=== PATIENT | male | born 1960 | race Two or more races ===

== ENCOUNTER 2017-08-11 16:40 | Emergency (ER) | payer MEDICAID ==
[~2017-08-11] VITALS: Ht 157.5 cm; Wt 90.5 kg
[2017-08-11 16:43] VITALS: BP 177/91
[2017-08-11] MEDS ORDERED: PRAV40TA2 PO (18:27)
[2017-08-11] MEDS ORDERED: GABA-827 PO (18:27)
[2017-08-11] MEDS ORDERED: ALOG25TA PO (18:27)
[2017-08-11] MEDS ORDERED: OMEP-110 PO (18:27)
[2017-08-11] MEDS ORDERED: LOSA25TA5 PO (18:27)
[2017-08-11] MEDS ORDERED: KETOROLAC 30 MG/1 ML ONE (18:59)
[2017-08-11] MEDS ORDERED: HYDROcodone/APAP 5/325 TABLET ONE (18:59)
[2017-08-11] MEDS ORDERED: HYDROcodone/APAP 5/325 TABLET PO ONE (19:00)
[2017-08-11] MEDS ORDERED: KETOROLAC 30 MG/1 ML IM ONE (19:00)
== END 2017-08-11 19:17 | disposition home or self-care (01) ==
LOC: ED 18:07
DX: M54.41 Lumbago with sciatica, right side (principal); M25.551 Pain in right hip; M79.651 Pain in right thigh; I10 Essential (primary) hypertension
CPT/HCPCS: 73502; 82962; 96372; 99284; J1885; J7512

== ENCOUNTER 2019-11-25 11:28 | Emergency (ER) | payer MEDICAID, OTHER ==
[~2019-11-25] VITALS: Ht 157.5 cm; Wt 96.8 kg
[~2019-11-25 11:28] MED LIST: ALOG25TA PO; GABA-827 PO; LOSA25TA25 PO; OMEP-110 PO; PRAV40TA2 PO
--- NOTE | 2019-11-25 12:00 | NUR ---
PT C/O NASAL CONGESTION X5 MONTHS. PT HAS SEEN DRS IN [place] AND IN [place] FOR THIS PROBLEM. HAS TAKEN ABX IN [place] WITH NO RELIEF. PT STATES IT HAS BEEN GETTING WORSE AND IS HAVING PROBLELMS SLEEPING. CONNECTED TO MONITORING. SPOUSE AT BEDSIDE. CALL LIGHT IN REACH. MD AT BEDSIDE FOR ASSESSMENT. AWAITING ORDERS AT THIS TIME.
--- NOTE | 2019-11-25 12:36 | NUR ---
PT RESTING COMFORTABLY ON GURNEY. NADN. LABS DRAWN. XRAY DONE.
[2019-11-25 12:39] LABS: BASOPHILS # (AUTO) 0.06 x10^3/uL (0-0.1); BASOPHILS % (AUTO) 1 % (0-1); EOSINOPHILS # (AUTO) 0.49 x10^3/uL (0-0.4); EOSINOPHILS % (AUTO) 6 % (1-7); LYMPHOCYTES # (AUTO) 2.79 x10^3/uL (1-3.4); LYMPHOCYTES % (AUTO) 34 % (22-44); MD NO; MEAN CORPUSCULAR HEMOGLOBIN 27.1 pg (27.5-34.5); MEAN CORPUSCULAR HGB CONC 32.8 g/dL (33.2-36.2); MEAN CORPUSCULAR VOLUME 82.6 fL (81-97); MEAN PLATELET VOLUME 9.4 fL (7.4-10.4); MONOCYTES # (AUTO) 0.52 x10^3/uL (0.2-0.8); MONOCYTES % (AUTO) 6 % (2-9); NEUTROPHILS # (AUTO) 4.25 x10^3/uL (1.8-6.8); NEUTROPHILS % (AUTO) 52 % (42-75); PLATELET COUNT 258 x10^3/uL (130-400); RED CELL DISTRIBUTION WIDTH 13.4 % (9.4-14.8)
[2019-11-25 12:48] LABS: ALANINE AMINOTRANSFERASE 18 U/L (12-78); ALBUMIN 3.3 g/dL (3.4-5.0); ANION GAP 9 mmol/L (5-15); CALCIUM 8.1 mg/dL (8.5-10.1); CHLORIDE 101 mmol/L (98-107)
[2019-11-25 12:53] LABS: ALKALINE PHOSPHATASE 139 U/L (45-117); BILIRUBIN,TOTAL 0.7 mg/dL (0.2-1.0); CREATININE 1.12 mg/dL (0.7-1.3); TOTAL PROTEIN 7.6 g/dL (6.4-8.2); TROPONIN I < 0.015 ng/mL (0.000-0.045)
--- NOTE | 2019-11-25 12:55 | NUR ---
ALL RESULTS ARE BACK AT THIS TIME. CHART UP FOR RECHECK.
--- NOTE | 2019-11-25 13:01 | NUR ---
RECEIVED NEW ORDER FOR CT.
--- NOTE | 2019-11-25 13:15 | NUR ---
PT DOES NOT WANT THE CT. PT STATES HE CAME IN FOR SINUS CONGESTION. NOTIFIED.
[2019-11-25 13:25] VITALS: BP 159/84
--- NOTE | 2019-11-25 13:26 | NUR ---
MD AT BEDSIDE TO UPDATE PT ON POC.
== END 2019-11-25 13:27 | disposition home or self-care (01) ==
LOC: ED 12:15
DX: J32.0 Chronic maxillary sinusitis (principal); B96.89 Other specified bacterial agents as the cause of diseases classified elsewhere; R06.00 Dyspnea, unspecified; E11.9 Type 2 diabetes mellitus without complications; I10 Essential (primary) hypertension
CPT/HCPCS: 36415; 71046; 80053; 83880; 84484; 85025; 85379; 87040; 93005; 99284